=== PATIENT | female | born 1940 | race Caucasian/White ===

== ENCOUNTER 2017-02-12 17:54 | Emergency (ER) | payer OTHER ==
[~2017-02-12] VITALS: Ht 167.6 cm; Wt 65.0 kg
[2017-02-12 17:56] VITALS: BP 113/58; PULSE 80; RESP 15; TEMP 97.8; O2SAT 100
--- NOTE | 2017-02-12 18:03 | PD ---
Physical Exam Time Seen by Provider: 17:59 Narrative 76yo F w/ c/o fall today. C/o L hip pain. Denies hitting head or LOC. Denies anticoagulants. VS reviewed. Patient seen in triage. Awaiting bed placement. MDM Supervised Visit with ANTHONY: Latha Leiva February 12, 2017 18:03
[2017-02-12] MEDS ORDERED: FLUO-1 PO (18:18)
[2017-02-12] MEDS ORDERED: TRAM50TA PO (18:18)
[2017-02-12] MEDS ORDERED: SODIUM CHLORIDE 0.9% FLUSH 10 ML FLUSH IV FLUSH PRN (18:45)
[2017-02-12] MEDS ORDERED: ONDANSETRON HCL 4 MG/2 ML VIAL IVP ONE (18:45)
[2017-02-12] MEDS ORDERED: MORPHINE SULFATE 4 MG/ML INJ IV PUSH ONE (18:45)
--- NOTE | 2017-02-12 18:47 | PD ---
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 The patient is Latvian-speaking and a snipper is used for the entire duration of the visit. States that she is not on any chemotherapy, she was told by her doctors in [facility] that this cancer is not amenable to treatment with chemotherapy or radiation. 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 Patient states that she is here visiting her sister from [facility], she arrived here yesterday. States that she was walking in her sister's house today and tripped over a rug causing her to fall onto her left hip. Denies head trauma or loss of consciousness. States that she has pain in the left hip secondary to her cancer but that when she fell on it today this exacerbated her pain greatly and she's been unable to walk or bear weight on the left hip since then. She denies any numbness or tingling, weakness, fever, chills, nausea, vomiting, chest pain, shortness breath, abdominal pain. The patient is here visiting for the next month. No other complaints. PFSH Past Medical History Cancer: Yes (TUMOR L. HIP, LIVER CA, LEUKEMIA) Tetanus Vaccination: < 5 Years Influenza Vaccination: Yes ?: Not Past Surgical History Abdominal Surgery: Yes (GASTRIC BYPASS) Cholecystectomy: Yes Hysterectomy: Yes Social History Alcohol Use: No Tobacco Use: No Substance Use: No Allergies-Medications (Allergen,Severity, Reaction): Coded Allergies: No Known Allergies (Unverified , 02/12/17) Reported Meds & Prescriptions Reported Meds & Active Scripts Active Lortab (Hydrocodone-Acetaminophen) 5-325 Mg Tab 1 Tab PO Q6H PRN Reported Prozac (Fluoxetine HCl) 10 Mg Cap Unknown Dose PO DAILY Tramadol (Tramadol HCl) 50 Mg Tab Unknown Dose PO Q4H PRN Review of Systems Except as stated in HPI: all other systems reviewed are Neg Physical Exam Narrative GENERAL: Well-nourished and well-developed pleasant female patient in no acute distress who is nontoxic appearing. SKIN: Warm and dry. HEAD: Normocephalic and atraumatic. EYES: No injection, drainage, or hyphema noted. PERRLA. EOMI. ENT: No nasal drainage noted. Oropharynx is clear. NECK: Supple and the trachea is midline. CARDIOVASCULAR: Regular rate and rhythm. RESPIRATORY: Breath sounds are equal bilaterally with no accessory muscle use, wheezing, rhonchi, or crackles. GASTROINTESTINAL: Abdomen is soft, non-tender, and nondistended. MUSCULOSKELETAL: Mild prominence to anterior left pelvis/hip, patient reports as chronic secondary to her cancer. Tender to palpation. No obvious deformities, swelling, cyanosis, or ecchymosis is present throughout the upper and lower extremities. Patient has full range of motion without any signs of neurovascular compromise. DP pulses are 2+ bilaterally. BACK: Nontender without any obvious deformities, bony point tenderness, or crepitus noted throughout the thoracic and lumbar vertebrae. NEUROLOGICAL: Awake, alert, and oriented. Normal speech and gait. Cranial nerves are grossly intact. Data Data Last Documented VS Vital Signs Date Time Temp Pulse Resp B/P Pulse Ox O2 Delivery O2 Flow Rate FiO2 02/12/17 19:47 92 Room Air 02/12/17 19:46 78 16 134/77 02/12/17 17:56 97.8 Orders Hip, Uni(Ap&Lat) W Ap Pelvis (02/12/17 18:42) Basic Metabolic Panel (Bmp) (02/12/17 18:42) Complete Blood Count With Diff (02/12/17 18:42) Prothrombin Time / Inr (Pt) (02/12/17 18:42) Act Partial Throm Time (Ptt) (02/12/17 18:42) Iv Access Insert/Monitor (02/12/17 18:42) Ecg Monitoring (02/12/17 18:42) Oximetry (02/12/17 18:42) Morphine Inj (Morphine Inj) (02/12/17 18:45) Ondansetron Inj (Zofran Inj) (02/12/17 18:45) Sodium Chloride 0.9% Flush (Ns Flush) (02/12/17 18:45) Electrocardiogram (02/12/17 20:04) Labs Laboratory Tests Test 02/12/17 19:26 White Blood Count 7.3 TH/MM3 Red Blood Count 4.46 MIL/MM3 Hemoglobin 12.7 GM/DL Hematocrit 39.0 % Mean Corpuscular Volume 87.5 FL Mean Corpuscular Hemoglobin 28.4 PG Mean Corpuscular Hemoglobin 32.5 % Concent Red Cell Distribution Width 15.2 % Platelet Count 271 TH/MM3 Mean Platelet Volume 9.1 FL Neutrophils (%) (Auto) 46.0 % Lymphocytes (%) (Auto) 42.4 % Monocytes (%) (Auto) 8.2 % Eosinophils (%) (Auto) 2.9 % Basophils (%) (Auto) 0.5 % Neutrophils # (Auto) 3.4 TH/MM3 Lymphocytes # (Auto) 3.1 TH/MM3 Monocytes # (Auto) 0.6 TH/MM3 Eosinophils # (Auto) 0.2 TH/MM3 Basophils # (Auto) 0.0 TH/MM3 CBC Comment DIFF FINAL Differential Comment Prothrombin Time 10.7 SEC Prothromb Time International 1.0 RATIO Ratio Activated Partial 29.4 SEC Thromboplast Time MDM Medical Decision Making Medical Screen Exam Complete: Yes Emergency Medical Condition: Yes Differential Diagnosis Hip fracture versus contusion versus acute on chronic pain Narrative Course 76-year-old female with a history of left hip tumor presents to the emergency department for evaluation of left hip pain status post trip and fall onto her left hip. Patient is afebrile, vital signs are stable. Left lower extremity is neurovascularly intact. She has full range of motion however does have tenderness to palpation of the left hip and is unable to bear weight due to the pain. IV access is obtained, labs were drawn and sent. Patient is administered morphine 4 mg IV and Zofran 4 mg IV. X-rays of the left hip and pelvis have been ordered and are pending. EKG shows sinus rhythm with no acute ST elevations or depressions. CBC is unremarkable. Coags are unremarkable. X-ray of left hip shows greater than 7 cm calcified mass arising from the left iliac wing. This is a known mass to the patient. No acute fracture or abnormality. Patient reports improvement of pain with morphine although it did cause her to experience some dizziness and nausea. She is able to ambulate without difficulty and would like to be discharged home with her sister. She'll be prescribed pain medication and advised to follow-up with her doctor. I discussed the case with my attending physician Dr. Hoover who is aware of the patients history, physical examination findings, and treatment plan. Diagnosis Primary Impression: Left hip pain Referrals: Primary Care Physician Patient Instructions: General Instructions Additional Instructions: Rest. Take Lortab as prescribed. Be careful as this medication can make you feel dizzy and weak. Do not take Lortab with Tramadol. Follow-up with your Primary Care Physician. Return to the ED for any acute worsening of symptoms. Med/Other Pt SpecificInfo: Prescription(s) given Scripts Hydrocodone-Acetaminophen (Lortab)5-325 Mg Tab1 Tab PO Q6H PRN (PAIN GREATER THAN 6) #20 TAB Ref 0 Prov:Chay Hoover MD 02/12/17 Disposition: 01 DISCHARGE HOME Condition: Stable Latha Pro February 12, 2017 18:47
--- NOTE | 2017-02-12 19:26 | RADRPT ---
EXAM DATE/TIME: 02/12/2017 19:11 [facility] COMPARISON: No previous studies available for comparison. INDICATIONS : Left hip pain after fall today. MEDICAL HISTORY : None. SURGICAL HISTORY : ENCOUNTER: Initial ACUITY: 1 day PAIN SCORE: 10/10 LOCATION: Left hip. FINDINGS: There is a calcifying or ossifying mass arising from the lateral aspect of the left iliac wing. Furth er evaluation, initially with CT examination of the pelvis would be suggested. The hips are grossly s ymmetric with mild degenerative changes. No acute injury. Contralateral right hemipelvis is unremarka ble. CONCLUSION: Greater than 7 cm calcified or ossified mass arising from the left iliac wing. Jeffrey Welch MD on February 12, 2017 at 19:18 Board Certified Radiologist. This report was verified electronically.
[2017-02-12 19:46] VITALS: BP 134/77; PULSE 78; RESP 16; O2SAT 93
[2017-02-12 19:47] VITALS: O2SAT 92
[2017-02-12 20:01] LABS: AUTOMATED NEUTROPHIL # 3.4 TH/MM3 (1.8-7.7); BASOPHIL % 0.5 % (0.0-2.0); EOSINOPHIL # 0.2 TH/MM3 (0-0.4); EOSINOPHIL % 2.9 % (0.0-4.0); HEMO FLAGS DIFF FINAL; LYMPH % 42.4 % (9.0-44.0); LYMPHOCYTE # 3.1 TH/MM3 (1.0-4.8); MEAN CELL VOLUME 87.5 FL (80.0-100.0); MEAN CORPUSCULAR HEMOGLOBIN 28.4 PG (27.0-34.0); MEAN CORPUSCULAR HGB CONC 32.5 % (32.0-36.0); MONO % 8.2 % (0.0-8.0); PLATELET COUNT 271 TH/MM3 (150-450); RED BLOOD COUNT 4.46 MIL/MM3 (4.00-5.30); RED CELL DISTRIBUTION WIDTH 15.2 % (11.6-17.2); WHITE BLOOD COUNT 7.3 TH/MM3 (4.0-11.0)
[2017-02-12 20:08] LABS: APTT (PATIENT) 29.4 SEC (24.3-30.1); PROTHROMBIN TIME - PATIENT 10.7 SEC (9.8-11.6)
[2017-02-12] MEDS ORDERED: HYDR-3533 PO (20:23)
[2017-02-12 20:42] LABS: BICARBONATE 28.3 MEQ/L (21.0-32.0); POTASSIUM 4.2 MEQ/L (3.5-5.1)
--- NOTE | 2017-02-13 15:25 | EKG ---
Date Performed: 02/12/2017 Time Performed: 20:10:44 PTAGE: 76 years EKG: Sinus rhythm BORDERLINE LEFT AXIS DEVIATION MODERATE INTRAVENTRICULAR CONDUCTION DELAY BORDERLINE ECG NO PREVIOUS TRACING DOCTOR: Kia Russell Interpretating Date/Time 02/13/2017 15:23:19
== END 2017-02-12 23:17 | disposition home or self-care (01) ==
LOC: NEPD 17:54
DX: M25.552 Pain in left hip (principal); R94.31 Abnormal electrocardiogram [ECG] [EKG]; C41.4 Malignant neoplasm of pelvic bones, sacrum and coccyx; C78.7 Secondary malignant neoplasm of liver and intrahepatic bile duct
CPT/HCPCS: 73502; 80048; 85025; 85610; 85730; 93005; 96374; 96375; 99284; J2270; J2405